=== PATIENT | male | born 1975 | race Caucasian/White ===

== ENCOUNTER 2018-08-02 08:03 | Day surgery (SDC) | payer OTHER, SELFPAY ==
[2018-08-02] VITALS (7 sets, daily range): BP systolic 96–110; BP diastolic 62–68; PULSE 67–91; RESP 10–16; TEMP 36.1–36.6; O2SAT 95–97; BMI 29.5
--- NOTE | 2018-08-02 | PATH_ITS ---
[facility] Accession Number: [id number] . 01 Material submitted: . PART A: CECAL BIOPSY PART B: 10CM FROM CECUM BIOPSY PART C: 20CM FROM CECUM BIOPSY PART D: 30CM FROM CECUM BIOPSY PART E: 40CM FROM CECUM PART F: 50CM FROM CECUM PART CM FROM CECUM PART H: 70CM FROM CECUM PART I: 80CM PART J: 90CM PART K: 100CM BX FROM CECUM PART L: 2 RECTAL POLYPS @ 10CM PART M: RECTAL BIOPSY . 02 Diagnosis: A-K, M: Cecum, 10-100 cm From Cecum, Rectum, Biopsies: Colonic mucosa with no significant diagnostic abnormality. Negative for active inflammation, granulomata, dysplasia or malignancy. . L. Rectal Polyps at 10 cm: Fragments of inflammatory polyp (two polyps removed). MRV/08/04/2018 . 02 Electronically signed: . Main Adams MD, PhD, Pathologist NPI- [id number] . 01 Gross description: . Part A: CECAL BIOPSY: Received in formalin are multiple fragment(s) of jaime, soft tissue measuring 0.7 x 0.3 x 0.2 cm in aggregate submitted entirely in 1 cassette(s) Part B: 10CM FROM CECUM BIOPSY: Received in formalin is 1 fragment(s) of jaime, soft tissue measuring 0.6 x 0.5 x 0.2 cm submitted entirely in 1 cassette(s) Part C: 20CM FROM CECUM BIOPSY: Received in formalin are 2 fragment(s) of jaime, soft tissue measuring 0.5 x 0.4 x 0.3 cm to 0.5 x 0.3 x 0.2 cm submitted entirely in 1 cassette(s) Part D: 30CM FROM CECUM BIOPSY: Received in formalin are multiple fragment(s) of jaime, soft tissue measuring 0.6 x 0.3 x 0.2 cm in aggregate submitted entirely in 1 cassette(s) Part E: 40CM FROM CECUM: Received in formalin are multiple fragment(s) of jaime, soft tissue measuring 0.8 x 0.3 x 0.2 cm in aggregate submitted entirely in 1 cassette(s) Part F: 50CM FROM CECUM: Received in formalin are 2 fragment(s) of jaime, soft tissue measuring 0.4 x 0.4 x 0.3 cm to 0.4 x 0.3 x 0.3 cm submitted entirely in 1 cassette(s) Part CM FROM CECUM: Received in formalin are multiple fragment(s) of jaime, soft tissue measuring 0.8 x 0.3 x 0.3 cm in aggregate submitted entirely in 1 cassette(s) Part H: 70CM FROM CECUM: Received in formalin are multiple fragment(s) of jaime, soft tissue measuring 0.7 x 0.2 x 0.2 cm in aggregate submitted entirely in 1 cassette(s) Part I: 80CM: Received in formalin are 2 fragment(s) of jaime, soft tissue measuring 1.0 x 0.3 x 0.1 cm to 0.4 x 0.4 x 0.3 cm submitted entirely in 1 cassette(s) Part J: 90CM: Received in formalin are 2 fragment(s) of jaime, soft tissue measuring 0.5 x 0.4 x 0.2 cm to 0.4 x 0.3 x 0.3 cm submitted entirely in 1 cassette(s) Part K: 100CM BX FROM CECUM: Received in formalin are multiple fragment(s) of jaime, soft tissue measuring 0.4 x 0.3 x 0.1 cm in aggregate submitted entirely in 1 cassette(s) Part L: 2 RECTAL POLYPS @ 10CM: Received in formalin are multiple fragment(s) of jaime, soft tissue measuring 1.2 x 0.4 x 0.3 cm in aggregate submitted entirely in 1 cassette(s) Part M: RECTAL BIOPSY: Received in formalin is 1 fragment(s) of jaime, soft tissue measuring 0.5 x 0.5 x 0.3 cm submitted entirely in 1 cassette(s) /CKI /CKI . 02 Pathologist provided ICD-10: K51.90, K51.40 . 02 CPT . 309366, 874629, 447509, 033746, 498134, 923683, 678124, 284543, 321170, 770591, 961820, 678482, 473339 Performed at: 01 [facility] [address] [id number] MD Brando Pennington MD Phone: [phone] Performed at: 02 [facility] [address] [address] [place], [place] [id number] MD Brayan Gonzalez MD Phone: [phone]
[2018-08-02] MEDS: SODIUM CHLORIDE 0.9% 1,000 ML 70 ML IV (09:05)
--- NOTE | 2018-08-02 09:29 | PM.HP.1 ---
History of Present Illness Date Patient Seen: 08/02/18 Chief complaint: [id number] Narrative: The patient is a 43-year-old male with a history of left-sided ulcerative colitis diagnosed in 2001 currently on Entyvio who was recently seen at our clinic on 05/03/2018 for routine visit. His symptoms appear well controlled with no evidence of bloody diarrhea. He is here for a surveillance colonoscopy for dysplasia Patient History Family & Social History Social History: household members spouse Meds Home Medications Medication Instructions Recorded Confirmed Type doxycycline hyclate 100 mg PO BID #0 01/21/17 History vedolizumab [Entyvio] 300 mg IV Q8W 08/02/18 08/02/18 History Allergies Allergy/AdvReac Type Severity Reaction Status Date / Time No Known Drug Allergies Allergy Verified 08/02/18 09:06 Review of Systems Review of Systems All systems reviewed & are unremarkable except as noted in HPI and below Exam Vital Signs (past 8 hours): - 08/02/18 08:57 Temperature 97.8 F Pulse Rate 70 Respiratory Rate 16 Blood Pressure 110/68 Pulse Oximetry 97 Oxygen Delivery Method Room Air Narrative Exam Narrative: General: Patient is well developed, not in apparent distress Cardiovascular: Regular rate and rhythm, no murmurs, rubs, or gallops; no evidence of edema; no palpable abdominal aortic aneurysm Gastrointestinal: Normoactive bowel sounds, soft, nontender, nondistended, no rebound tenderness, no hepatosplenomegaly, no evidence of hernia Assessment & Plan Plan: Assessment/Plan Narrative: 43-year-old male with history of left-sided ulcerative colitis diagnosed in 2001 currently in remission on Entyvio who is here for a surveillance colonoscopy for dysplasia. Regarding the procedure(s), the risks and potential complications, benefits, and alternatives (including not doing the procedure) were discussed with the patient. The risks include but are not limited to bleeding, infection, perforation which may require surgical intervention, missed lesions, and adverse reactions to sedative medicines. After a question and answer period, the patient agreed to proceed with the procedure(s) and gives informed consent.
--- NOTE | 2018-08-02 09:32 | P.HP_ITS ---
History of Present Illness Date Patient Seen: 08/02/18 Chief complaint: [id number] Narrative: The patient is a 43-year-old male with a history of left- sided ulcerative colitis diagnosed in 2001 currently on Entyvio who was recently seen at our clinic on 05/03/2018 for routine visit. His symptoms appear well controlled with no evidence of bloody diarrhea. He is here for a surveillance colonoscopy for dysplasia Patient History Family & Social History Social History: household members spouse Meds Home Medications Medication Instructions Recorded Confirmed Type doxycycline hyclate 100 mg PO BID #0 01/21/17 History vedolizumab [Entyvio] 300 mg IV Q8W 08/02/18 08/02/18 History Allergies Allergy/AdvReac Type Severity Reaction Status Date / Time No Known Drug Allergies Allergy Verified 08/02/18 09:06 Review of Systems Review of Systems All systems reviewed & are unremarkable except as noted in HPI and below Exam Vital Signs (past 8 hours): - 08/02/18 08:57 Temperature 97.8 F Pulse Rate 70 Respiratory Rate 16 Blood Pressure 110/68 Pulse Oximetry 97 Oxygen Delivery Method Room Air Narrative Exam Narrative: General: Patient is well developed, not in apparent distress Cardiovascular: Regular rate and rhythm, no murmurs, rubs, or gallops; no evidence of edema; no palpable abdominal aortic aneurysm Gastrointestinal: Normoactive bowel sounds, soft, nontender, nondistended, no rebound tenderness, no hepatosplenomegaly, no evidence of hernia Assessment & Plan Plan: Assessment/Plan Narrative: 43-year-old male with history of left-sided ulcerative colitis diagnosed in 2001 currently in remission on Entyvio who is here for a surveillance colonoscopy for dysplasia. Regarding the procedure(s), the risks and potential complications, benefits, and alternatives (including not doing the procedure) were discussed with the patient. The risks include but are not limited to bleeding, infection, perforation which may require surgical intervention, missed lesions, and adverse reactions to sedative medicines. After a question and answer period, the patient agreed to proceed with the procedure(s) and gives informed consent.
--- NOTE | 2018-08-02 09:32 | PM.OP.ENDO ---
Operative Date/Time/Diagnoses Date of procedure: 08/02/18 Procedure Notes Procedure in detail: Surgeon: Jose Daniel Leggett MD Procedure: Colonoscopy with biopsies, snare polypectomy, submucosal tattoo Preoperative diagnosis: Left-sided ulcerative colitis greater than 8 years duration; here for surveillance colonoscopy Postoperative diagnosis: Left colon erythema; 2 rectal polyp status post polypectomy and tattoo Medications: Conscious sedation using 10 mg IV of Midazolam and 250 mcg IV of Fentanyl Preanesthesia Assessment An H and P was performed/updated and the Px?s ASA class is 2. The procedure was discussed in detail with the patient. The potential risks and complications including infection, bleeding, missed lesions, perforation, need for surgery in case of perforation, prolonged hospital stay, and were explained. A brief question and answer period was allotted and once all questions were answered, informed consent was obtained. The patient was brought back to the procedure room and placed on standard monitoring. The patient?s vital signs were monitored continuously throughout the entire procedure. Prior to starting, a timeout was performed to confirm the patient?s identity, allergies, medications, and procedure. Procedure in detail The patient was placed in left lateral decubitus position and once adequate sedation was obtained a DENISE was performed. The digital rectal examination did not reveal any palpable lesions. The tip of the colonoscope was placed in the anal canal and advanced without difficulty all the way to the cecum which was identified by the appendiceal orifice and the ileocecal valve. The terminal ileum was intubated to a distance of 10 cm from the ileocecal valve and there were no noted mucosal abnormalities. The colonoscope was brought back into the cecum and careful irrigation of all johnson of the colon was performed. The mucosa appeared normal throughout the right colon up until 30 cm from the anus. From this point all the way to the rectumthere was note of an increased vascular pattern but no severe inflammation. Surveillance biopsies were taken from the entire colon starting from the cecum and in 10 cm intervals. Three biopsies were taken and placed in separate bottles. In the rectum there was note of 2 semi pedunculated polyps measuring 5 and 6 mm and these were removed in their entirety by means of a hot snare. Submucosal injection of spot ink was performed at the polypectomy sites for tattooing purposes. Retroflexion could not be performed in the rectum due to the small caliber lumen. There was note of internal hemorrhoids on withdrawal from the rectum. The patient tolerated the procedure well and will be brought back to the recovery area to be discharged once criteria are met. The prep was judged to be good/excellent and adequate to identify polyps less than 5 mm. The withdrawal time was 20 min. The total procedure time from initial sedation was 36 min. Complications There were no complications and estimated blood loss was minimal. Recommendations: Resume previous diet Continue outPx medications Follow up pathology results Repeat colonoscopy in 2 years. This may change depending on pathology results Office follow up with Dr. Juarez as previously scheduled An emergency contact number was given to the patient for any complications related to the procedure
[2018-08-02] MEDS: MIDAZOLAM 5 MG/5 ML VIAL IV (09:49)
[2018-08-02] MEDS: fentaNYL 250 MCG/5 ML INJ IV (10:09)
--- NOTE | 2018-08-02 10:17 | P.DS_ITS ---
History of Present Illness Chief complaint: [id number] Narrative: The patient is a 43-year-old male with a history of left- sided ulcerative colitis diagnosed in 2001 currently on Entyvio who was recently seen at our clinic on 05/03/2018 for routine visit. His symptoms appear well controlled with no evidence of bloody diarrhea. He is here for a surveillance colonoscopy for dysplasia Discharge Providers Discharge provider: Jose Daniel Leggett MD Exam Vital Signs (past 8 hours): - 08/02/18 08:57 Temperature 97.8 F Pulse Rate 70 Respiratory Rate 16 Blood Pressure 110/68 Pulse Oximetry 97 Oxygen Delivery Method Room Air Narrative Exam Narrative: General: Patient is well developed, not in apparent distress Cardiovascular: Regular rate and rhythm, no murmurs, rubs, or gallops; no evidence of edema; no palpable abdominal aortic aneurysm Gastrointestinal: Normoactive bowel sounds, soft, nontender, nondistended, no rebound tenderness, no hepatosplenomegaly, no evidence of hernia Discharge Plan Discharge Plan Patient Disposition: Home Discharge comment: Discharge patient with a copy of procedure report Remove IV prior to discharge Discharge to home once criteria are met (soft abdomen, stable vital signs, no abdominal pain, tolerating p.o., if Px has flatus) Discharge Med Rec/Prescriptions Prescriptions: Continue doxycycline hyclate 100 MG capsule 100 mg PO BID Qty: 0 RF: 0 vedolizumab [Entyvio] 300 mg Recon Soln 300 mg IV Q8W RF: 0 Discharge Orders: Discharge (Order); Ordered 08/02/18 Ordered By: Jose Daniel Leggett Provider Discharge Instructions Diet: Diet as Tolerated Visit Report/Discharge Packet Stand Alone Forms: Surgery Discharge Discharge Data Attending Provider: Jose Daniel Leggett
== END 2018-08-02 11:05 | disposition home or self-care (01) ==
PROVIDERS: Visit Provider Internal Medicine Gastroenterology
PROC: 0DJD8ZZ Inspection of Lower Intestinal Tract, Via Natural or Artificial Opening Endoscopic (ICD-10-PCS; CPT 45378; principal; 2018-08-02 09:30)
DX: K51.90 Ulcerative colitis, unspecified, without complications (principal); K62.1 Rectal polyp; K51.40 Inflammatory polyps of colon without complications
CPT/HCPCS: 45381; 45385; 45380; 88305; J2250; J3010

== ENCOUNTER → 2020-10-13 10:10 | Outpatient (CLI) | payer OTHER, SELFPAY ==
[2020-10-13 11:52] LABS: COVID19 -Nasal RAPID Negative (Negative)
== END ==
PROVIDERS: Visit Provider Physician Assistant
DX: Z11.59 Encounter for screening for other viral diseases (principal)
CPT/HCPCS: 87635

== ENCOUNTER 2020-10-15 07:35 | Day surgery (SDC) | payer OTHER, SELFPAY ==
--- NOTE | 2020-10-15 08:18 | DI.RAD.S_ITS ---
PROCEDURE: XR ABDOMEN 1V INDICATIONS: Abdominal pain TECHNIQUE: One view of the abdomen acquired. COMPARISON: None. FINDINGS: Surgical changes and devices: None. Bowel: Bowel gas pattern is normal. Soft tissues: No suspicious abdominal calcifications. Visualized solid organ contours appear normal in size. Bones: No suspicious bony lesions. IMPRESSION: Nonspecific bowel gas pattern. Depending on the clinical status follow-up by CT scanning may become necessary. Dictated by: Fito Navarro M.D. on 10/15/2020 at 8:50 Approved by: Fito Navarro M.D. on 10/15/2020 at 8:51
--- NOTE | 2020-10-15 08:19 | SUR.PREOP ---
Pt brought into preop in obvious distress. Pt states for the last week he has struggled with having a bowel movement which has caused him severe abdominal pain and spasms. Pt states he feels as though his colon is prolapsed and that he is obstructed. Pt completed prep at 0515. Pt took picture of last stool from 0700, remains cloudy brown without solids. Pt states abdominal pain and spasms are a 4/10 when still, 7/[address] King notified. Initially recommended enema. Pt states that would cause him excruciating pain. Dr King to bedside and options discussed. Final recommendations: 1. Reschedule colonoscopy. 2. Abdominal xray today. 3. Begin course of steroids - to be picked up at the [facility]. 4. Telehealth appointment in one week. Pt's back in [place]. She will leave now to come and get Main. She states she has children with her. Therefore, on her arrival Pt and I will do speaker phone call so that she has the above information.
--- NOTE | 2020-10-15 08:32 | SUR.PREOP ---
Pt to xray via cart.
--- NOTE | 2020-10-15 09:03 | SUR.PREOP ---
Returned from Xray. Pt getting dressed.
--- NOTE | 2020-10-15 10:25 | SUR.PREOP ---
Late Entry: Instructions reviewed with pt and his . Pt discharged at 0915.
== END 2020-10-15 09:15 | disposition home or self-care (01) ==
PROVIDERS: Referring Provider Student in an Organized Health Care Education/Training Program; Visit Provider Student in an Organized Health Care Education/Training Program
DX: K51.90 Ulcerative colitis, unspecified, without complications (principal); Z53.09 Procedure and treatment not carried out because of other contraindication
CPT/HCPCS: 45378; 74018

== ENCOUNTER → 2020-11-03 11:01 | Outpatient (CLI) | payer OTHER, SELFPAY ==
[2020-11-03 11:52] LABS: COVID19 -Nasal RAPID Negative (Negative)
== END ==
PROVIDERS: Visit Provider Physician Assistant
DX: Z11.59 Encounter for screening for other viral diseases (principal)
CPT/HCPCS: 87635; C9803

== ENCOUNTER 2020-11-05 08:29 | Day surgery (SDC) | payer OTHER, SELFPAY ==
--- NOTE | 2020-11-05 | PATH_ITS ---
[facility] Accession Number: [id number] . 01 Material submitted: . colon - DESCENDING SIGMOID COLITIS . 02 Diagnosis: Descending, Sigmoid, Biopsies: Chronic colitis with mild to moderate neutrophilic activity. Please see comment. Negative for granulomas, dysplasia, and malignancy. [facility] 11/11/2020 1833 Local . 02 Comment: No obvious viral cytopathic effects or parasitic organisms are identified, and a CMV immunohistochemical stain is negative for CMV antigen. The morphologic appearance could be compatible with the provided clinical history of ulcerative colitis, if infection and medication related mucosal injury are excluded. . 02 Electronically signed: . Delilah Lu MD, Pathologist NPI- [id number] . 01 Gross description: . DESCENDING SIGMOID COLITIS: Received in formalin are 5 fragment(s) of jaime, soft tissue measuring 0.3 x 0.2 x 0.1 cm to 0.2 x 0.1 x 0.1 cm submitted entirely in 1 cassette(s) /QB 11/06/2020 0813 Local . 02 Microscopic: . A CMV immunohistochemical stain was performed to evaluate for CMV antigen and is negative. The control stain showed appropriate reactivity. . * This test was developed and its performance characteristics determined by [facility]. It has not been cleared or approved by the U.S. Food and Drug Administration. The FDA has determined that such clearance or approval is not necessary. This test is used for clinical purposes. It should not be regarded as investigational or for research. . 02 Pathologist provided ICD-10: K51.90 . 02 CPT . 187595, N84040 Performed at: 01 [facility] [address], [place], [place] [id number] MD Brando Pennington MD Phone: [phone] Performed at: 02 [facility] [address] [place] [id number] MD Delilah Lu MD Phone: [phone]
[2020-11-05] MEDS: SODIUM CHLORIDE 0.9% 1,000 ML 70 ML IV (08:43)
[2020-11-05 08:49] VITALS: BP 110/65; PULSE 75; RESP 20; TEMP 36.6; O2SAT 98; BMI 24.3
[2020-11-05 09:05] VITALS: BMI 24.3
--- NOTE | 2020-11-05 09:45 | PM.HP.1 ---
History of Present Illness History of Present Illness Date Patient Seen: 11/05/20 Time Patient Seen: 09:45 Chief complaint: SDC Narrative: Patient is a pleasant 45-year-old male who presented for colonoscopy. He does have a known history of ulcerative colitis and has been off of his medications. He has recently been started on steroids due to active flare. He does feel that the steroids are helping with his symptoms. Patient History Family & Social History Social History: household members spouse Tobacco & Substance use: Smoking Status Never smoker alcohol intake frequency holiday/special occasion Substance Use Type does not use Meds Home Medications and Allergies Home Medications Medication Instructions Recorded Confirmed Type prednisone 5 mg PO DAILY 11/05/20 11/05/20 History Allergies Allergy/AdvReac Type Severity Reaction Status Date / Time No Known Drug Allergies Allergy Verified 11/05/20 08:47 Review of Systems Review of Systems ROS: Yes All systems reviewed with the patient and are negative except as otherwise documented Exam Vital Signs (past 8 hours): - 11/05/20 08:49 Temperature 97.9 F Pulse Rate 75 Respiratory Rate 20 Blood Pressure 110/65 Pulse Oximetry 98 Oxygen Delivery Method Room Air Const General: cooperative, healthy appearing, comfortable, well developed, well groomed and anxious Nutritional Appearance: average body habitus Orientation: alert, awake and oriented x3 HENMT Head: normocephalic and atraumatic Resp Effort & Inspection: normal respiratory effort and able to speak in complete sentences Auscultation: clear to auscultation bilaterally Cardio Rate: regular rate Rhythm: regular rhythm Heart Sounds: S1 normal and S2 normal GI Inspection: normal to inspection Palpation: soft Auscultation: normal bowel sounds Extrem Right lower extremity: no edema Left lower extremity: no edema Assessment & Plan Assessment & Plan narrative: 1. Ulcerative colitis with symptoms of flare including bloody diarrhea Colonoscopy today, further recommendations to follow
[2020-11-05] MEDS: MIDAZOLAM 5 MG/5 ML VIAL IV (10:08)
[2020-11-05] MEDS: fentaNYL 250 MCG/5 ML INJ IV (10:08)
--- NOTE | 2020-11-05 10:26 | PM.OP.ENDO ---
Operative Date/Time/Diagnoses Date of procedure: 11/05/20 Time of procedure: 09:54 Procedure Notes Procedure in detail: Surgeon: Taylor King DO Procedure: Colonoscopy to hepatic flexure with biopsies Preoperative diagnosis: 1. Ulcerative Colitis Postoperative diagnosis: 1. Haji 2 Colitis from the rectum through the descending colon 2. Intolerance to conscious sedation Medications: Conscious sedation using 10 mg IV of Midazolam and 200 mcg IV of Fentanyl , 25 mg Benadryl IV Preanesthesia Assessment An H and P was performed/updated and the Px?s ASA class is 2. The procedure was discussed in detail with the patient. The potential risks and complications including infection, bleeding, missed lesions, perforation, need for surgery in case of perforation, prolonged hospital stay, and were explained. A brief question and answer period was allotted and once all questions were answered, informed consent was obtained. The patient was brought back to the procedure room and placed on standard monitoring. The patient?s vital signs were monitored continuously throughout the entire procedure. Prior to starting, a timeout was performed to confirm the patient?s identity, allergies, medications, and procedure. Procedure in detail The patient was placed in left lateral decubitus position and once adequate sedation was obtained a DENISE was performed. The digital rectal examination did not reveal any palpable lesions. The tip of the colonoscope was placed in the anal canal and advanced with significant discomfort by the patient, despite multiple inconsistent medication patient was extremely uncomfortable and intolerant of the procedure. We were able to advanced to the hepatic flexure, however patient had requested multiple times to discontinue the procedure so the procedure was aborted. Normal colon mucosa was noted from the hepatic flexure to the descending colon. He did have evidence of inflammatory bowel disease from the descending colon to the rectum consistent with known history of ulcerative colitis. This was consistent with Haji 2 colitis. Biopsies of colitis were obtained, however dysplasia biopsies were not completed due to patient's intolerance for the procedure. The patient tolerated the procedure well and will be brought back to the recovery area to be discharged once criteria are met. The prep was judged to be good / adequate to identify polyps less than 5 mm. The withdrawal time was not calculated as the cecum was not reached due to patient's intolerance and significant pain with procedure. The total physician intraservice time was 26 min. Complications There were no complications and estimated blood loss was minimal. Recommendations: Resume previous diet Continue outPx medications Follow up pathology results Repeat colonoscopy to be determined at follow-up appointment Office follow up as previously scheduled All future procedures should have monitored anesthesia care for sedation An emergency contact number was given to the patient for any complications related to the procedure
[2020-11-05 10:27] VITALS: BP 100/56; BP 97/48; PULSE 68; PULSE 75; RESP 14; TEMP 37.2; O2SAT 96; O2SAT 97
[2020-11-05 10:37] VITALS: BP 94/47; PULSE 70; RESP 14; O2SAT 96
[2020-11-05 10:43] VITALS: BP 112/57; PULSE 71; RESP 14; TEMP 36.9; O2SAT 96
--- NOTE | 2020-11-05 11:00 | SUR.PHASEII ---
Handoff to Kassandra Leija RN for meal break.
[2020-11-05 11:38] VITALS: BP 108/57; PULSE 69; RESP 20; TEMP 36.2; O2SAT 96
== END 2020-11-05 11:38 | disposition home or self-care (01) ==
PROVIDERS: Referring Provider Student in an Organized Health Care Education/Training Program; Visit Provider Student in an Organized Health Care Education/Training Program
PROC: 0DJD8ZZ Inspection of Lower Intestinal Tract, Via Natural or Artificial Opening Endoscopic (ICD-10-PCS; CPT 45378; principal; 2020-11-05 09:30)
DX: K51.90 Ulcerative colitis, unspecified, without complications (principal)
CPT/HCPCS: 45378; J2250; J3010

== ENCOUNTER → 2022-02-15 10:30 | Outpatient (CLI) | payer OTHER, SELFPAY ==
[2022-02-15 11:57] LABS: COVID19 -Nasal RAPID Negative (Negative)
== END ==
PROVIDERS: Referring Provider Internal Medicine Gastroenterology; Visit Provider Family Medicine Sleep Medicine
DX: Z20.822 Contact with and (suspected) exposure to COVID-19 (principal)
CPT/HCPCS: 87635; C9803

== ENCOUNTER 2022-02-17 10:36 | Day surgery (SDC) | payer OTHER, SELFPAY ==
[2022-02-17] VITALS (8 sets, daily range): BP systolic 83–109; BP diastolic 44–61; PULSE 59–74; RESP 14–18; TEMP 36.5; O2SAT 98–100; BMI 24.3
--- NOTE | 2022-02-17 | PATH_ITS ---
[facility] Accession Number: [id number] . 01 Material submitted: . PART A: colon - RIGHT COLON BX PART B: colon - TRANSVERSE COLON BX PART C: colon - LEFT COLON BX . 02 Diagnosis: A-C. Right, Transverse, Left Colon, Biopsies: Colonic mucosa with no significant diagnostic abnormality. Negative for active inflammation, granulomas, dysplasia, and malignancy. V 02/22/2022 1051 Local . 02 Electronically signed: . Main Adams MD, PhD, Pathologist NPI- [id number] . 01 Gross description: . Part A: RIGHT COLON BX: Received in formalin are multiple fragment(s) of jaime, soft tissue measuring 1.3 x 0.2 x 0.2 cm in aggregate submitted entirely in 1 cassette(s) Part B: TRANSVERSE COLON BX: Received in formalin are 4 fragment(s) of jaime, soft tissue measuring 0.4 x 0.3 x 0.1 cm to 0.2 x 0.2 x 0.1 cm submitted entirely in 1 cassette(s) Part C: LEFT COLON BX: Received in formalin are multiple fragment(s) of jaime, soft tissue measuring 1.3 x 0.3 x 0.2 cm in aggregate submitted entirely in 1 cassette(s) /[facility] 02/19/2022 1101 Local . 02 Pathologist provided ICD-10: K51.00 . 02 CPT . 371937, 821751, 585449 Specimen Comment: A courtesy copy of this report has been sent to [phone] Performed at: 01 [facility] [address] [place] [address] [address], [place], [place] [id number] MD Brando Pennington MD Phone: [phone] Performed at: 02 [facility] [address] [place] [id number] MD Delilah Lu MD Phone: [phone]
[2022-02-17] MEDS: SODIUM CHLORIDE 0.9% 1,000 ML 84 ML IV (11:04)
--- NOTE | 2022-02-17 11:16 | P.HP_ITS ---
History of Present Illness History of Present Illness Date Patient Seen: 02/17/22 Chief complaint: SDC Narrative: History of ulcerative colitis need for screening and assessment of complete mucosal healing Patient History Family & Social History Social History: household members spouse Tobacco & Substance use: Smoking Status Former smoker alcohol intake frequency holiday/special occasion Substance Use Type does not use Meds Home Medications and Allergies Home Medications Medication Instructions Recorded Confirmed Type Entyvio 02/17/22 History Allergies Allergy/AdvReac Type Severity Reaction Status Date / Time No Known Drug Allergies Allergy Verified 02/17/22 10:49 Exam Vital Signs (past 8 hours): - 02/17/22 10:52 Temperature 97.7 F Pulse Rate 63 Respiratory Rate 16 Blood Pressure 109/61 Pulse Oximetry 100 Oxygen Delivery Method Room Air Narrative Exam Narrative: Oropharynx free of lesions Chest clear to auscultation percussion Cardiac exam reveals no S3 or murmur Assessment & Plan Assessment & Plan narrative: History of ulcerative colitis of over 8 years duration need for follow-up colonoscopy for colorectal cancer screening in to check for complete mucosal hea ling. Risks, benefits, alternatives have been explained. Time Spent With Patient Critical Care time: I spent a total of [] minutes of critical care time on this patient's care today; this time is exclusive of procedural time.
--- NOTE | 2022-02-17 11:18 | P.OP.COLON_ITS ---
Operative Date/Time/Diagnoses Date of procedure: 02/17/22 Pre-op diagnosis: See indication and findings Procedure & Clinicians Study performed: Colonoscopy Indications: Ulcerative colitis of more than 8 years duration. Need to check for complete mucosal healing on Entyvio and colorectal cancer screening Surgeon: Hesham Syed Procedure Notes Procedure in detail: After informed consent was obtained the patient was placed in left lateral decubitus position. The video colonoscope was introduced the rectum and slowly advanced cecum. Preparation was good. On slow withdrawal mucosa was carefully examined. The scope was removed. The patient tolerated procedure well. Blood loss none Complications none Sedation mac Findings 1. Mucosa appearing completely normal. Two biopsies taken every 10 cm and placed in 2 bottles right colon, transverse colon, and left colon. 2. Rare sigmoid diverticular orifice. 3. Mild internal hemorrhoids 4. Otherwise negative colonoscopy to cecum Will be in touch regarding his biopsies. He will then need colonoscopy follow- up for 2 years.
== END 2022-02-17 12:24 | disposition home or self-care (01) ==
PROVIDERS: Referring Provider Internal Medicine Gastroenterology; Visit Provider Internal Medicine Gastroenterology
PROC: 0DJD8ZZ Inspection of Lower Intestinal Tract, Via Natural or Artificial Opening Endoscopic (ICD-10-PCS; CPT 45378; principal; 2022-02-17 11:30)
DX: K57.30 Diverticulosis of large intestine without perforation or abscess without bleeding (principal); K64.8 Other hemorrhoids; Z87.19 Personal history of other diseases of the digestive system
CPT/HCPCS: 45380; J2704